=== PATIENT | male | born 1990 | race Caucasian/White ===

== ENCOUNTER 2019-03-06 16:43 | Emergency (ER) | payer OTHER, SELFPAY ==
--- NOTE | 2019-03-06 16:53 | DI.RAD.S_ITS ---
PROCEDURE: XR CHEST 1V INDICATIONS: Short of breath TECHNIQUE: One view of the chest was acquired. COMPARISON: None. FINDINGS: Surgical changes and devices: None. Lungs and pleura: Lungs are clear. No pleural effusions or pneumothorax. Mediastinum: Mediastinal contours appear normal. Heart size is normal. Bones and chest wall: No suspicious bony lesions. Mild dextroconvex scoliotic curvature is seen. Overlying soft tissues appear unremarkable. IMPRESSION: Normal portable chest. Dictated by: Valeriano Tang M.D. on 03/06/2019 at 16:27 Approved by: Valeriano Tang M.D. on 03/06/2019 at 16:28
[2019-03-06 16:55] VITALS: BP 162/89; PULSE 65; RESP 16; TEMP 36.7; O2SAT 100; BMI 29.9
[2019-03-06 17:00] VITALS: BP 150/88; PULSE 78; RESP 70; O2SAT 100
[2019-03-06 17:05] LABS: Add Manual Diff / Slide Review NO; Basophils Absolute Auto 100 /uL (0-100); Basophils Percent Auto 0.7 % (0-2); Eosinophils Absolute Auto 100 /uL (0-450); Eosinophils Percent Auto 1.5 % (2-4); Hemoglobin 15.7 g/dL (13.5-17.5); Lymphocytes Absolute Auto 2400 /uL (1100-4500); Lymphocytes Percent Auto 26.4 % (25-40); Mean Corpuscular HGB Conc 34.2 % (30-36); Mean Corpuscular Hemoglobin 30.8 PG (26-34); Mean Corpuscular Volume 90.1 fL (80-100); Monocytes Absolute Auto 800 /uL (0-900); Neutrophils Absolute Auto 5700 /uL (1500-7000); Neutrophils Percent Auto 62.4 % (50-75); Platelet Count 366 X10^3/uL (150-400); Red Blood Cell Count 5.11 X10^6/uL (4.5-5.9); Red Cell Distribution Width 12.6 % (11.6-14.8); White Blood Cell Count 9.1 X10^3/uL (4.5-11.0)
--- NOTE | 2019-03-06 17:09 | RT ---
Neb not given, refused by provider (Xiomara), lungs clear. Pt c/o dyspnea, but non airway reactive dyspnea, pt c/o anxiety.
--- NOTE | 2019-03-06 17:13 | ED.ANXIETY ---
HPI - Anxiety <Sierra Mckeon PA-C - Last Filed: 03/06/19 20:56> General Chief Complaint: Anxiety Stated Complaint: sob/fatigue/numbness of both hands 40mins Time Seen by Provider: 03/06/19 16:53 Source: patient Mode of arrival: ambulatory Limitations: no limitations History of Present Illness HPI narrative: This 29-year-old male comes to ED secondary to feeling of generalized weakness ?all over? while riding his motorcycle into town an hour or so before arrival. Denies any focal weakness. He states that he felt warm, and felt like maybe he needed to eat. He went to the restaurant and states he felt like it was a great effort just to eat. He states he does not feel like he is wheezing or short of breath in the typical since, but feels like it takes a great effort to breathe. He states that he has a sensation like he could pass out, but not feeling dizzy, again more just weak and ?can't relax?. He denies any chest pain. He denies any nausea. He denies any recent illness, cough, cold symptoms or fever. He denies any abdominal pain, urinary symptoms, blood in the stools. Denies any pain or swelling in the extremities. He denies palpitations. He states he can feel a slight tingling in both hands. He denies any difficulty with speech or walking. He states that he has had some anxiety symptoms in the past, no specific diagnosis of panic attacks, symptoms were less intense than this. He denies any personal or family history of blood clots. He was camping last night with friends and admits that he probably drank ?too much? Related Data Allergies Allergy/AdvReac Type Severity Reaction Status Date / Time No Known Drug Allergies Allergy Verified 03/06/19 16:55 Review of Systems <Sierra Mckeon PA-C - Last Filed: 03/06/19 20:56> Review of Systems ROS Unobtainable: All systems reviewed & are unremarkable except as noted in HPI and below PFSH <Sierra Mckeon PA-C - Last Filed: 03/06/19 20:56> Medical History (Updated 03/06/19 @ 19:16 by Sierra Mckeon PA-C) Seasonal allergies (Chronic) Surgical History (Updated 03/06/19 @ 17:17 by Sierra Mckeon PA-C) Status post wisdom tooth extraction (Resolved) Exam <Sierra Mcekon PA-C - Last Filed: 03/06/19 20:56> Narrative Exam Narrative: GENERAL APPEARANCE: Patient sitting comfortably, in no distress. HEENT: PERRL, EOMI, normal TMs and oropharynx NECK: Supple, no masses LUNGS: Clear to auscultation bilaterally. HEART: Rate and rhythm regular without murmur, normal S1 and S2, no S3 or S4. ABDOMEN: Soft, NT, ND, + BS x 4 quadrants, no masses, no CVAT NEUROLOGIC: Alert and oriented, normal speech, gait and coordination. Sensation grossly intact throughout the extremities MUSCULOSKELETAL: Full range of motion throughout the upper and lower extremities. Strength intact 5/5 throughout all dominguez in the upper extremities. Maintains straight leg raise against resistance bilaterally. Initial Vital Signs Initial Vital Signs: Vital Signs Temperature 98.1 F 03/06/19 16:55 Pulse Rate 65 03/06/19 16:55 Respiratory Rate 16 03/06/19 16:55 Blood Pressure 162/89 H 03/06/19 16:55 Pulse Oximetry 100 03/06/19 16:55 <Simone Friedman DO - Last Filed: 03/06/19 21:14> Initial Vital Signs Initial Vital Signs: Vital Signs Temperature 98.1 F 03/06/19 16:55 Pulse Rate 65 03/06/19 16:55 Respiratory Rate 16 03/06/19 16:55 Blood Pressure 162/89 H 03/06/19 16:55 Pulse Oximetry 100 03/06/19 16:55 Course <Sierra Mckeon PA-C - Last Filed: 03/06/19 20:56> Additional Information: Following fluids patient is feeling markedly improved, eating and drinking fluids here the department. We reviewed workup findings without explanation for acute symptoms. He feels like he may have been somewhat dehydrated. He requests discharge, wants to go have a meal. He agrees not to drive until he knows that he is feeling back to baseline, and agrees to return if any acutely worsening symptoms in the interim. Otherwise agrees to set up with PCP next week and have records sent for follow-up. Orders Ordered: ED Orders 03/06/19 16:51 EKG-12 Lead Stat 03/06/19 16:53 Consult to Respiratory Therapy Evaluate & Treat XR chest 1V Stat 03/06/19 16:58 Complete Blood Count AUTO DIFF Stat Comprehensive Metabolic Panel Stat D Dimer Stat Magnesium Stat Troponin & CK Cardiac Panel Stat Discontinued Medications Albuterol/Ipratropium (Duoneb) 3 ml INH NOW ONE Stop: 03/06/19 16:54 Last Admin: 03/06/19 17:08 Dose: Not Given Sodium Chloride (Normal Saline 0.9%) 1,000 mls @ 1,000 mls/hr IV BOLUS ONE Stop: 03/06/19 18:43 Last Infusion: 03/06/19 18:36 Dose: 0 mls/hr Admin: 03/06/19 17:52 Dose: 1,000 mls/hr Vital Signs - 8 hr 03/06/19 16:55 03/06/19 17:00 03/06/19 17:48 Temperature 98.1 F Pulse Rate 65 78 73 Respiratory Rate 16 70 H Blood Pressure 162/89 H Blood Pressure [Left Arm] 150/88 H 145/79 H Pulse Oximetry 100 100 97 03/06/19 18:00 03/06/19 18:30 03/06/19 19:05 Temperature Pulse Rate 65 63 72 Respiratory Rate 20 20 Blood Pressure Blood Pressure [Left Arm] 142/80 H 148/93 H 152/85 H Pulse Oximetry 99 99 100 <Simone Friedman DO - Last Filed: 03/06/19 21:14> Orders Ordered: ED Orders 03/06/19 16:51 EKG-12 Lead Stat 03/06/19 16:53 Consult to Respiratory Therapy Evaluate & Treat XR chest 1V Stat 03/06/19 16:58 Complete Blood Count AUTO DIFF Stat Comprehensive Metabolic Panel Stat D Dimer Stat Magnesium Stat Troponin & CK Cardiac Panel Stat Discontinued Medications Albuterol/Ipratropium (Duoneb) 3 ml INH NOW ONE Stop: 03/06/19 16:54 Last Admin: 03/06/19 17:08 Dose: Not Given Sodium Chloride (Normal Saline 0.9%) 1,000 mls @ 1,000 mls/hr IV BOLUS ONE Stop: 03/06/19 18:43 Last Infusion: 03/06/19 18:36 Dose: 0 mls/hr Admin: 03/06/19 17:52 Dose: 1,000 mls/hr Vital Signs - 8 hr 03/06/19 16:55 03/06/19 17:00 03/06/19 17:48 Temperature 98.1 F Pulse Rate 65 78 73 Respiratory Rate 16 70 H Blood Pressure 162/89 H Blood Pressure [Left Arm] 150/88 H 145/79 H Pulse Oximetry 100 100 97 03/06/19 18:00 03/06/19 18:30 03/06/19 19:05 Temperature Pulse Rate 65 63 72 Respiratory Rate 20 20 Blood Pressure Blood Pressure [Left Arm] 142/80 H 148/93 H 152/85 H Pulse Oximetry 99 99 100 MDM - Anxiety <Sierra Mckeon PA-C - Last Filed: 03/06/19 20:56> Lab Data Attestation: I reviewed the patient's lab results. Result diagrams: 03/06/19 16:58 03/06/19 16:58 Lab Results 03/06/19 03/06/19 03/06/19 Range/Units 16:58 16:58 16:58 WBC 9.1 (4.5-11.0) X10^3/uL RBC 5.11 (4.5-5.9) X10^6/uL Hgb 15.7 (13.5-17.5) g/dL Hct 46.0 (41-53) % MCV 90.1 (80-100) fL MCH 30.8 (26-34) PG MCHC 34.2 (30-36) % RDW 12.6 (11.6-14.8) % Plt Count 366 (150-400) X10^3/uL Neut % (Auto) 62.4 (50-75) % Lymph % (Auto) 26.4 (25-40) % [place] % (Auto) 9.0 (3-14) % Eos % (Auto) 1.5 L (2-4) % Baso % (Auto) 0.7 (0-2) % Neut # (Auto) 5700 (5349-3060) /uL Lymph # (Auto) 2400 (4048-8550) /uL [place] # (Auto) 800 (0-900) /uL Eos # (Auto) 100 (0-450) /uL Baso # (Auto) 100 (0-100) /uL D-Dimer < 200 (<230) ng/mL Sodium (137-145) mmol/L Potassium (3.4-5.1) mmol/L Chloride (98-107) mmol/L Carbon Dioxide (22-32) mmol/L BUN (9-20) mg/dL Creatinine (0.66-1.25) mg/dL Estimated GFR (>60) mL/min BUN/Creatinine Ratio (6-22) Glucose (70-100) mg/dL Calcium (8.4-10.2) mg/dL Magnesium 1.9 (1.6-2.3) mg/dL Total Bilirubin (0.2-1.3) mg/dL AST (17-59) IU/L ALT (21-72) IU/L Alkaline Phosphatase (38-126) U/L Total Creatine Kinase 249 H (55-170) U/L CK-MB (CK-2) 0.75 (<2.37) ng/mL CK-MB (CK-2) Rel Index 0.3 L (1.5-5.0) % Troponin I < 0.012 (0.01-0.034) ng/mL Total Protein (6.3-8.2) g/dL Albumin (3.5-5.0) g/dL Globulin (1.7-4.1) g/dL Albumin/Globulin Ratio (1.0-2.8) 03/06/19 Range/Units 16:58 WBC (4.5-11.0) X10^3/uL RBC (4.5-5.9) X10^6/uL Hgb (13.5-17.5) g/dL Hct (41-53) % MCV (80-100) fL MCH (26-34) PG MCHC (30-36) % RDW (11.6-14.8) % Plt Count (150-400) X10^3/uL Neut % (Auto) (50-75) % Lymph % (Auto) (25-40) % [place] % (Auto) (3-14) % Eos % (Auto) (2-4) % Baso % (Auto) (0-2) % Neut # (Auto) (1831-1773) /uL Lymph # (Auto) (8446-6347) /uL [place] # (Auto) (0-900) /uL Eos # (Auto) (0-450) /uL Baso # (Auto) (0-100) /uL D-Dimer (<230) ng/mL Sodium 138 (137-145) mmol/L Potassium 3.9 (3.4-5.1) mmol/L Chloride 102 (98-107) mmol/L Carbon Dioxide 25 (22-32) mmol/L BUN 13 (9-20) mg/dL Creatinine 1.00 (0.66-1.25) mg/dL Estimated GFR > 60.0 (>60) mL/min BUN/Creatinine Ratio 13.0 (6-22) Glucose 102 H (70-100) mg/dL Calcium 9.8 (8.4-10.2) mg/dL Magnesium (1.6-2.3) mg/dL Total Bilirubin 0.5 (0.2-1.3) mg/dL AST 51 (17-59) IU/L ALT 78 H (21-72) IU/L Alkaline Phosphatase 69 (38-126) U/L Total Creatine Kinase (55-170) U/L CK-MB (CK-2) (<2.37) ng/mL CK-MB (CK-2) Rel Index (1.5-5.0) % Troponin I (0.01-0.034) ng/mL Total Protein 8.1 (6.3-8.2) g/dL Albumin 5.0 (3.5-5.0) g/dL Globulin 3.1 (1.7-4.1) g/dL Albumin/Globulin Ratio 1.6 (1.0-2.8) Urine Dip Bedside Urine Glucose Negative Bedside Urine Bilirubin - Negative Urine Specific [place] 1.010 Bedside Urine Occult Blood - Negative Bedside Urine pH 7.0 Bedside Urine Protein - Negative Bedside Urine Urobilinogen - Negative Bedside Urine Nitrite - Negative Bedside Urine Leukocytes - Negative Esterase Imaging Data Chest x-ray: Radiologist's impression: [address] [address] XRay Report Signed Patient: Binu Antoine [facility]#: [id number] : 1990Acct:[id number] Age/Sex: 29 / MDate of Service: 03/06/19 Loc: ED Accession Number: [id number] Procedure: XR chest 1V Ordering Provider: Fishfader,Sierra P.A-C PROCEDURE: XR CHEST 1V INDICATIONS: Short of breath TECHNIQUE: One view of the chest was acquired. COMPARISON: None. FINDINGS: Surgical changes and devices: None. Lungs and pleura: Lungs are clear. No pleural effusions or pneumothorax. Mediastinum: Mediastinal contours appear normal. Heart size is normal. Bones and chest wall: No suspicious bony lesions. Mild dextroconvex scoliotic curvature is seen. Overlying soft tissues appear unremarkable. IMPRESSION: Normal portable chest. Dictated by: Valeriano Tang M.D. on 03/06/2019 at 16:27 Approved by: Valeriano Tang M.D. on 03/06/2019 at 16:28 ECG Data Attestation: I personally reviewed and interpreted this ECG as follows: (Normal sinus rhythm, rate 68, normal axis, LVH voltage criteria) Prior ECG tracings: not available for review <Simone Friedman DO - Last Filed: 03/06/19 21:14> Lab Data Lab Results 03/06/19 03/06/19 03/06/19 Range/Units 16:58 16:58 16:58 WBC 9.1 (4.5-11.0) X10^3/uL RBC 5.11 (4.5-5.9) X10^6/uL Hgb 15.7 (13.5-17.5) g/dL Hct 46.0 (41-53) % MCV 90.1 (80-100) fL MCH 30.8 (26-34) PG MCHC 34.2 (30-36) % RDW 12.6 (11.6-14.8) % Plt Count 366 (150-400) X10^3/uL Neut % (Auto) 62.4 (50-75) % Lymph % (Auto) 26.4 (25-40) % [place] % (Auto) 9.0 (3-14) % Eos % (Auto) 1.5 L (2-4) % Baso % (Auto) 0.7 (0-2) % Neut # (Auto) 5700 (0304-5331) /uL Lymph # (Auto) 2400 (0189-9785) /uL [place] # (Auto) 800 (0-900) /uL Eos # (Auto) 100 (0-450) /uL Baso # (Auto) 100 (0-100) /uL D-Dimer < 200 (<230) ng/mL Sodium (137-145) mmol/L Potassium (3.4-5.1) mmol/L Chloride (98-107) mmol/L Carbon Dioxide (22-32) mmol/L BUN (9-20) mg/dL Creatinine (0.66-1.25) mg/dL Estimated GFR (>60) mL/min BUN/Creatinine Ratio (6-22) Glucose (70-100) mg/dL Calcium (8.4-10.2) mg/dL Magnesium 1.9 (1.6-2.3) mg/dL Total Bilirubin (0.2-1.3) mg/dL AST (17-59) IU/L ALT (21-72) IU/L Alkaline Phosphatase (38-126) U/L Total Creatine Kinase 249 H (55-170) U/L CK-MB (CK-2) 0.75 (<2.37) ng/mL CK-MB (CK-2) Rel Index 0.3 L (1.5-5.0) % Troponin I < 0.012 (0.01-0.034) ng/mL Total Protein (6.3-8.2) g/dL Albumin (3.5-5.0) g/dL Globulin (1.7-4.1) g/dL Albumin/Globulin Ratio (1.0-2.8) 03/06/19 Range/Units 16:58 WBC (4.5-11.0) X10^3/uL RBC (4.5-5.9) X10^6/uL Hgb (13.5-17.5) g/dL Hct (41-53) % MCV (80-100) fL MCH (26-34) PG MCHC (30-36) % RDW (11.6-14.8) % Plt Count (150-400) X10^3/uL Neut % (Auto) (50-75) % Lymph % (Auto) (25-40) % [place] % (Auto) (3-14) % Eos % (Auto) (2-4) % Baso % (Auto) (0-2) % Neut # (Auto) (9147-0493) /uL Lymph # (Auto) (5375-6173) /uL [place] # (Auto) (0-900) /uL Eos # (Auto) (0-450) /uL Baso # (Auto) (0-100) /uL D-Dimer (<230) ng/mL Sodium 138 (137-145) mmol/L Potassium 3.9 (3.4-5.1) mmol/L Chloride 102 (98-107) mmol/L Carbon Dioxide 25 (22-32) mmol/L BUN 13 (9-20) mg/dL Creatinine 1.00 (0.66-1.25) mg/dL Estimated GFR > 60.0 (>60) mL/min BUN/Creatinine Ratio 13.0 (6-22) Glucose 102 H (70-100) mg/dL Calcium 9.8 (8.4-10.2) mg/dL Magnesium (1.6-2.3) mg/dL Total Bilirubin 0.5 (0.2-1.3) mg/dL AST 51 (17-59) IU/L ALT 78 H (21-72) IU/L Alkaline Phosphatase 69 (38-126) U/L Total Creatine Kinase (55-170) U/L CK-MB (CK-2) (<2.37) ng/mL CK-MB (CK-2) Rel Index (1.5-5.0) % Troponin I (0.01-0.034) ng/mL Total Protein 8.1 (6.3-8.2) g/dL Albumin 5.0 (3.5-5.0) g/dL Globulin 3.1 (1.7-4.1) g/dL Albumin/Globulin Ratio 1.6 (1.0-2.8) Urine Dip Bedside Urine Glucose Negative Bedside Urine Bilirubin - Negative Urine Specific [place] 1.010 Bedside Urine Occult Blood - Negative Bedside Urine pH 7.0 Bedside Urine Protein - Negative Bedside Urine Urobilinogen - Negative Bedside Urine Nitrite - Negative Bedside Urine Leukocytes - Negative Esterase Discharge Plan Departure Patient Disposition: Home Clinical Impression: Weakness, Dehydration Discharge Date/Time: 03/06/19 19:23 Interventions: ED Discharge Assessment Last Done: 03/06/19 19:23 Instructions: DI for Dehydration -- Adult Activity Restrictions/Additional Instructions: I think that your overall weakness and feeling poorly today was likely caused by some dehydration. This may have been exacerbated by drinking last night. Since you are feeling so much better, we can discharge you. Please call have a meal as you have planned and drink plenty of clear fluids tonight. Please do not drive until you are sure that you are feeling better. Please return to the ED as we talked about if you have any acutely worsening symptoms again, otherwise call your insurance for referral to a local primary care provider tomorrow morning so that you can follow up next week and make sure you are feeling well. You can request records be sent from [facility] Medical Records Department when you figure out which provider you will be seeing <Simone Friedman, - Last Filed: 03/06/19 21:14> [facility] Gianluca Attestation: I was available for consultation during this patient's emergency department encounter
[2019-03-06 17:14] LABS: D Dimer < 200 ng/mL (<230)
[2019-03-06 17:15] LABS: Alanine Aminotransferase 78 IU/L (21-72); Albumin Globulin Ratio 1.6 (1.0-2.8); Alkaline Phosphatase 69 U/L (38-126); Aspartate Aminotransferase 51 IU/L (17-59); Bilirubin Total 0.5 mg/dL (0.2-1.3); Blood Urea Nitrogen 13 mg/dL (9-20); Calcium 9.8 mg/dL (8.4-10.2); Carbon Dioxide 25 mmol/L (22-32); Chloride 102 mmol/L (98-107); Estimated Glomerular Filt Rate > 60.0 mL/min (>60); Globulin 3.1 g/dL (1.7-4.1); Glucose 102 mg/dL (70-100); HEMOLYSIS < 15 (0-50); Potassium 3.9 mmol/L (3.4-5.1); Sodium 138 mmol/L (137-145); Total Protein 8.1 g/dL (6.3-8.2)
[2019-03-06 17:16] LABS: Creatine Kinase 249 U/L (55-170); Magnesium 1.9 mg/dL (1.6-2.3)
--- NOTE | 2019-03-06 17:18 | ED_ITS ---
HPI - Anxiety <Sierra Mckeon PA-C - Last Filed: 03/06/19 20:56> General Chief Complaint: Anxiety Stated Complaint: sob/fatigue/numbness of both hands 40mins Time Seen by Provider: 03/06/19 16:53 Source: patient Mode of arrival: ambulatory Limitations: no limitations History of Present Illness HPI narrative: This 29-year-old male comes to ED secondary to feeling of generalized weakness ?all over? while riding his motorcycle into town an hour or so before arrival. Denies any focal weakness. He states that he felt warm, and felt like maybe he needed to eat. He went to the restaurant and states he felt like it was a great effort just to eat. He states he does not feel like he is w heezing or short of breath in the typical since, but feels like it takes a great effort to breathe. He states that he has a sensation like he could pass out, but not feeling dizzy, again more just weak and ?can't relax?. He denies any chest pain. He denies any nausea. He denies any recent illness, cough, cold symptoms or fever. He denies any abdominal pain, urinary symptoms, blood in the stools. Denies any pain or swelling in the extremities. He denies palpitations. He states he can feel a slight tingling in both hands. He denies any difficulty with speech or walking. He states that he has had some anxiety symptoms in the past, no specific diagnosis of panic attacks, symptoms were less intense than this. He denies any personal or family history of blood clots. He was camping last night with friends and admits that he probably drank ?too much? Related Data Allergies Allergy/AdvReac Type Severity Reaction Status Date / Time No Known Drug Allergies Allergy Verified 03/06/19 16:55 Review of Systems <Sierra Mckeon PA-C - Last Filed: 03/06/19 20:56> Review of Systems ROS Unobtainable: All systems reviewed & are unremarkable except as noted in HPI and below PFSH <Sierra Mckeon PA-C - Last Filed: 03/06/19 20:56> Medical History (Updated 03/06/19 @ 19:16 by Sierra Mckeon PA-C) Seasonal allergies (Chronic) Surgical History (Updated 03/06/19 @ 17:17 by Sierra Mckeon PA-C) Status post wisdom tooth extraction (Resolved) Exam <Sierra Mckeon PA-C - Last Filed: 03/06/19 20:56> Narrative Exam Narrative: GENERAL APPEARANCE: Patient sitting comfortably, in no distress. HEENT: PERRL, EOMI, normal TMs and oropharynx NECK: Supple, no masses LUNGS: Clear to auscultation bilaterally. HEART: Rate and rhythm regular without murmur, normal S1 and S2, no S3 or S4. ABDOMEN: Soft, NT, ND, + BS x 4 quadrants, no masses, no CVAT NEUROLOGIC: Alert and oriented, normal speech, gait and coordination. Sensation grossly intact throughout the extremities MUSCULOSKELETAL: Full range of motion throughout the upper and lower extremities. Strength intact 5/5 throughout all dominguez in the upper extremities. Maintains straight leg raise against resistance bilaterally. Initial Vital Signs Initial Vital Signs: Vital Signs Temperature 98.1 F 03/06/19 16:55 Pulse Rate 65 03/06/19 16:55 Respiratory Rate 16 03/06/19 16:55 Blood Pressure 162/89 H 03/06/19 16:55 Pulse Oximetry 100 03/06/19 16:55 <Simone Friedman DO - Last Filed: 03/06/19 21:14> Initial Vital Signs Initial Vital Signs: Vital Signs Temperature 98.1 F 03/06/19 16:55 Pulse Rate 65 03/06/19 16:55 Respiratory Rate 16 03/06/19 16:55 Blood Pressure 162/89 H 03/06/19 16:55 Pulse Oximetry 100 03/06/19 16:55 Course <Sierra Mckeon PA-C - Last Filed: 03/06/19 20:56> Additional Information: Following fluids patient is feeling markedly improved, eating and drinking fluids here the department. We reviewed workup findings without explanation for acute symptoms. He feels like he may have been somewhat dehydrated. He requests discharge, wants to go have a meal. He agrees not to drive until he knows that he is feeling back to baseline, and agrees to return if any acutely worsening symptoms in the interim. Otherwise agrees [facility] and have records sent for follow-up. Orders Ordered: ED Orders 03/06/19 16:51 EKG-12 Lead Stat 03/06/19 16:53 Consult to Respiratory Therapy Evaluate & Treat XR chest 1V Stat 03/06/19 16:58 Complete Blood Count AUTO DIFF Stat Comprehensive Metabolic Panel Stat D Dimer Stat Magnesium Stat Troponin & CK Cardiac Panel Stat Discontinued Medications Albuterol/Ipratropium (Duoneb) 3 ml INH NOW ONE Stop: 03/06/19 16:54 Last Admin: 03/06/19 17:08 Dose: Not Given Sodium Chloride (Normal Saline 0.9%) 1,000 mls @ 1,000 mls/hr IV BOLUS ONE Stop: 03/06/19 18:43 Last Infusion: 03/06/19 18:36 Dose: 0 mls/hr Admin: 03/06/19 17:52 Dose: 1,000 mls/hr Vital Signs - 8 hr 03/06/19 16:55 03/06/19 17:00 03/06/19 17:48 Temperature 98.1 F Pulse Rate 65 78 73 Respiratory Rate 16 70 H Blood Pressure 162/89 H Blood Pressure [Left Arm] 150/88 H 145/79 H Pulse Oximetry 100 100 97 03/06/19 18:00 03/06/19 18:30 03/06/19 19:05 Temperature Pulse Rate 65 63 72 Respiratory Rate 20 20 Blood Pressure Blood Pressure [Left Arm] 142/80 H 148/93 H 152/85 H Pulse Oximetry 99 99 100 <Simone Friedman DO - Last Filed: 03/06/19 21:14> Orders Ordered: ED Orders 03/06/19 16:51 EKG-12 Lead Stat 03/06/19 16:53 Consult to Respiratory Therapy Evaluate & Treat XR chest 1V Stat 03/06/19 16:58 Complete Blood Count AUTO DIFF Stat Comprehensive Metabolic Panel Stat D Dimer Stat Magnesium Stat Troponin & CK Cardiac Panel Stat Discontinued Medications Albuterol/Ipratropium (Duoneb) 3 ml INH NOW ONE Stop: 03/06/19 16:54 Last Admin: 03/06/19 17:08 Dose: Not Given Sodium Chloride (Normal Saline 0.9%) 1,000 mls @ 1,000 mls/hr IV BOLUS ONE Stop: 03/06/19 18:43 Last Infusion: 03/06/19 18:36 Dose: 0 mls/hr Admin: 03/06/19 17:52 Dose: 1,000 mls/hr Vital Signs - 8 hr 03/06/19 16:55 03/06/19 17:00 03/06/19 17:48 Temperature 98.1 F Pulse Rate 65 78 73 Respiratory Rate 16 70 H Blood Pressure 162/89 H Blood Pressure [Left Arm] 150/88 H 145/79 H Pulse Oximetry 100 100 97 03/06/19 18:00 03/06/19 18:30 03/06/19 19:05 Temperature Pulse Rate 65 63 72 Respiratory Rate 20 20 Blood Pressure Blood Pressure [Left Arm] 142/80 H 148/93 H 152/85 H Pulse Oximetry 99 99 100 MDM - Anxiety <Sierra Mckeon PA-C - Last Filed: 03/06/19 20:56> Lab Data Attestation: I reviewed the patient's lab results. Result diagrams: 03/06/19 16:58 03/06/19 16:58 Lab Results 03/06/19 03/06/19 03/06/19 Range/Units 16:58 16:58 16:58 WBC 9.1 (4.5-11.0) X10^3/uL RBC 5.11 (4.5-5.9) X10^6/uL Hgb 15.7 (13.5-17.5) g/dL Hct 46.0 (41-53) % MCV 90.1 (80-100) fL MCH 30.8 (26-34) PG MCHC 34.2 (30-36) % RDW 12.6 (11.6-14.8) % Plt Count 366 (150-400) X10^3/uL Neut % (Auto) 62.4 (50-75) % Lymph % (Auto) 26.4 (25-40) % [place] % (Auto) 9.0 (3-14) % Eos % (Auto) 1.5 L (2-4) % Baso % (Auto) 0.7 (0-2) % Neut # (Auto) 5700 (1719-4260) /uL Lymph # (Auto) 2400 (0788-0131) /uL [place] # (Auto) 800 (0-900) /uL Eos # (Auto) 100 (0-450) /uL Baso # (Auto) 100 (0-100) /uL D-Dimer < 200 (<230) ng/mL Sodium (137-145) mmol/L Potassium (3.4-5.1) mmol/L Chloride (98-107) mmol/L Carbon Dioxide (22-32) mmol/L BUN (9-20) mg/dL Creatinine (0.66-1.25) mg/dL Estimated GFR (>60) mL/min BUN/Creatinine Ratio (6-22) Glucose (70-100) mg/dL Calcium (8.4-10.2) mg/dL Magnesium 1.9 (1.6-2.3) mg/dL Total Bilirubin (0.2-1.3) mg/dL AST (17-59) IU/L ALT (21-72) IU/L Alkaline Phosphatase (38-126) U/L Total Creatine Kinase 249 H (55-170) U/L CK-MB (CK-2) 0.75 (<2.37) ng/mL CK-MB (CK-2) Rel Index 0.3 L (1.5-5.0) % Troponin I < 0.012 (0.01-0.034) ng/mL Total Protein (6.3-8.2) g/dL Albumin (3.5-5.0) g/dL Globulin (1.7-4.1) g/dL Albumin/Globulin Ratio (1.0-2.8) 03/06/19 Range/Units 16:58 WBC (4.5-11.0) X10^3/uL RBC (4.5-5.9) X10^6/uL Hgb (13.5-17.5) g/dL Hct (41-53) % MCV (80-100) fL MCH (26-34) PG MCHC (30-36) % RDW (11.6-14.8) % Plt Count (150-400) X10^3/uL Neut % (Auto) (50-75) % Lymph % (Auto) (25-40) % [place] % (Auto) (3-14) % Eos % (Auto) (2-4) % Baso % (Auto) (0-2) % Neut # (Auto) (7790-1925) /uL Lymph # (Auto) (2737-8412) /uL [place] # (Auto) (0-900) /uL Eos # (Auto) (0-450) /uL Baso # (Auto) (0-100) /uL D-Dimer (<230) ng/mL Sodium 138 (137-145) mmol/L Potassium 3.9 (3.4-5.1) mmol/L Chloride 102 (98-107) mmol/L Carbon Dioxide 25 (22-32) mmol/L BUN 13 (9-20) mg/dL Creatinine 1.00 (0.66-1.25) mg/dL Estimated GFR > 60.0 (>60) mL/min BUN/Creatinine Ratio 13.0 (6-22) Glucose 102 H (70-100) mg/dL Calcium 9.8 (8.4-10.2) mg/dL Magnesium (1.6-2.3) mg/dL Total Bilirubin 0.5 (0.2-1.3) mg/dL AST 51 (17-59) IU/L ALT 78 H (21-72) IU/L Alkaline Phosphatase 69 (38-126) U/L Total Creatine Kinase (55-170) U/L CK-MB (CK-2) (<2.37) ng/mL CK-MB (CK-2) Rel Index (1.5-5.0) % Troponin I (0.01-0.034) ng/mL Total Protein 8.1 (6.3-8.2) g/dL Albumin 5.0 (3.5-5.0) g/dL Globulin 3.1 (1.7-4.1) g/dL Albumin/Globulin Ratio 1.6 (1.0-2.8) Urine Dip Bedside Urine Glucose Negative Bedside Urine Bilirubin - Negative Urine Specific [place] 1.010 Bedside Urine Occult Blood - Negative Bedside Urine pH 7.0 Bedside Urine Protein - Negative Bedside Urine Urobilinogen - Negative Bedside Urine Nitrite - Negative Bedside Urine Leukocytes - Negative Esterase Imaging Data Chest x-ray: Radiologist's impression: [address] [address] XRay Report Signed Patient: Binu Antoine [facility]#: [id number] : 1990Acct:[id number] Age/Sex: 29 / MDate of Service: 03/06/19 Loc: ED Accession Number: [id number] Procedure: XR chest 1V Ordering Provider: Sierra Mckeon P.A-C PROCEDURE: XR CHEST 1V INDICATIONS: Short of breath TECHNIQUE: One view of the chest was acquired. COMPARISON: None. FINDINGS: Surgical changes and devices: None. Lungs and pleura: Lungs are clear. No pleural effusions or pneumothorax. Mediastinum: Mediastinal contours appear normal. Heart size is normal. Bones and chest wall: No suspicious bony lesions. Mild dextroconvex scoliotic curvature is seen. Overlying soft tissues appear unremarkable. IMPRESSION: Normal portable chest. Dictated by: Valeriano Tang M.D. on 03/06/2019 at 16:27 Approved by: Valeriano Tang M.D. on 03/06/2019 at 16:28 ECG Data Attestation: I personally reviewed and interpreted this ECG as follows: (Normal sinus rhythm, rate 68, normal axis, LVH voltage criteria) Prior ECG tracings: not available for review <Simone Friedman DO - Last Filed: 03/06/19 21:14> Lab Data Lab Results 03/06/19 03/06/19 03/06/19 Range/Units 16:58 16:58 16:58 WBC 9.1 (4.5-11.0) X10^3/uL RBC 5.11 (4.5-5.9) X10^6/uL Hgb 15.7 (13.5-17.5) g/dL Hct 46.0 (41-53) % MCV 90.1 (80-100) fL MCH 30.8 (26-34) PG MCHC 34.2 (30-36) % RDW 12.6 (11.6-14.8) % Plt Count 366 (150-400) X10^3/uL Neut % (Auto) 62.4 (50-75) % Lymph % (Auto) 26.4 (25-40) % [place] % (Auto) 9.0 (3-14) % Eos % (Auto) 1.5 L (2-4) % Baso % (Auto) 0.7 (0-2) % Neut # (Auto) 5700 (1348-7964) /uL Lymph # (Auto) 2400 (8875-7256) /uL [place] # (Auto) 800 (0-900) /uL Eos # (Auto) 100 (0-450) /uL Baso # (Auto) 100 (0-100) /uL D-Dimer < 200 (<230) ng/mL Sodium (137-145) mmol/L Potassium (3.4-5.1) mmol/L Chloride (98-107) mmol/L Carbon Dioxide (22-32) mmol/L BUN (9-20) mg/dL Creatinine (0.66-1.25) mg/dL Estimated GFR (>60) mL/min BUN/Creatinine Ratio (6-22) Glucose (70-100) mg/dL Calcium (8.4-10.2) mg/dL Magnesium 1.9 (1.6-2.3) mg/dL Total Bilirubin (0.2-1.3) mg/dL AST (17-59) IU/L ALT (21-72) IU/L Alkaline Phosphatase (38-126) U/L Total Creatine Kinase 249 H (55-170) U/L CK-MB (CK-2) 0.75 (<2.37) ng/mL CK-MB (CK-2) Rel Index 0.3 L (1.5-5.0) % Troponin I < 0.012 (0.01-0.034) ng/mL Total Protein (6.3-8.2) g/dL Albumin (3.5-5.0) g/dL Globulin (1.7-4.1) g/dL Albumin/Globulin Ratio (1.0-2.8) 03/06/19 Range/Units 16:58 WBC (4.5-11.0) X10^3/uL RBC (4.5-5.9) X10^6/uL Hgb (13.5-17.5) g/dL Hct (41-53) % MCV (80-100) fL MCH (26-34) PG MCHC (30-36) % RDW (11.6-14.8) % Plt Count (150-400) X10^3/uL Neut % (Auto) (50-75) % Lymph % (Auto) (25-40) % [place] % (Auto) (3-14) % Eos % (Auto) (2-4) % Baso % (Auto) (0-2) % Neut # (Auto) (3398-0828) /uL Lymph # (Auto) (5651-2491) /uL [place] # (Auto) (0-900) /uL Eos # (Auto) (0-450) /uL Baso # (Auto) (0-100) /uL D-Dimer (<230) ng/mL Sodium 138 (137-145) mmol/L Potassium 3.9 (3.4-5.1) mmol/L Chloride 102 (98-107) mmol/L Carbon Dioxide 25 (22-32) mmol/L BUN 13 (9-20) mg/dL Creatinine 1.00 (0.66-1.25) mg/dL Estimated GFR > 60.0 (>60) mL/min BUN/Creatinine Ratio 13.0 (6-22) Glucose 102 H (70-100) mg/dL Calcium 9.8 (8.4-10.2) mg/dL Magnesium (1.6-2.3) mg/dL Total Bilirubin 0.5 (0.2-1.3) mg/dL AST 51 (17-59) IU/L ALT 78 H (21-72) IU/L Alkaline Phosphatase 69 (38-126) U/L Total Creatine Kinase (55-170) U/L CK-MB (CK-2) (<2.37) ng/mL CK-MB (CK-2) Rel Index (1.5-5.0) % Troponin I (0.01-0.034) ng/mL Total Protein 8.1 (6.3-8.2) g/dL Albumin 5.0 (3.5-5.0) g/dL Globulin 3.1 (1.7-4.1) g/dL Albumin/Globulin Ratio 1.6 (1.0-2.8) Urine Dip Bedside Urine Glucose Negative Bedside Urine Bilirubin - Negative Urine Specific [place] 1.010 Bedside Urine Occult Blood - Negative Bedside Urine pH 7.0 Bedside Urine Protein - Negative Bedside Urine Urobilinogen - Negative Bedside Urine Nitrite - Negative Bedside Urine Leukocytes - Negative Esterase Discharge Plan Departure Patient Disposition: Home Clinical Impression: Weakness, Dehydration Discharge Date/Time: 03/06/19 19:23 Interventions: ED Discharge Assessment Last Done: 03/06/19 19:23 Instructions: DI for Dehydration -- Adult Activity Restrictions/Additional Instructions: I think that your overall weakness and feeling poorly today was likely caused by some dehydration. This may have been exacerbated by drinking last night. Since you are feeling so much better, we can discharge you. Please call have a meal as you have planned and drink plenty of clear fluids tonight. Please do not drive until you are sure that you are feeling better. Please return to the ED as we talked about if you have any acutely worsening symptoms again, otherwise call your insurance for referral to a local primary care provider tomorrow morning so that you can follow up next week and make sure you are feeling well. You can request records be sent from [facility] Medical Records Department when you figure out which provider you will be seeing <Simone Friedman, - Last Filed: 03/06/19 21:14> [facility] Attending Gianluca Attestation: I was available for consultation during this patient's emergency department encounter
[2019-03-06 17:26] LABS: Troponin I < 0.012 ng/mL (0.01-0.034)
[2019-03-06 17:31] LABS: CKMB % Relative Index 0.3 % (1.5-5.0); Creatine Kinase MB 0.75 ng/mL (<2.37)
[2019-03-06 17:48] VITALS: BP 145/79; PULSE 73; O2SAT 97
[2019-03-06] MEDS: SODIUM CHLORIDE 0.9% 1,000 ML 1000 ML IV (17:52)
[2019-03-06 18:00] VITALS: BP 142/80; PULSE 65; O2SAT 99
[2019-03-06 18:30] VITALS: BP 148/93; PULSE 63; RESP 20; O2SAT 99
[2019-03-06 19:05] VITALS: BP 152/85; PULSE 72; RESP 20; O2SAT 100
== END 2019-03-06 19:23 | disposition home or self-care (01) ==
PROVIDERS: Emergency Provider Internal Medicine
DX: R53.1 Weakness (principal); E86.0 Dehydration; R06.09 Other forms of dyspnea; R20.0 Anesthesia of skin
CPT/HCPCS: 36591; 71045; 80053; 81003; 82550; 82553; 83735; 84484; 85025; 85379; 93005; 96360; 99284; 99285